=== PATIENT | male | born 1955 | race Caucasian/White ===

== ENCOUNTER 2019-07-07 19:39 | Emergency (ER) | payer MEDICAID, OTHER ==
[~2019-07-07] VITALS: Ht 182.9 cm; Wt 68.0 kg
[~2019-07-07 19:39] MED LIST: ALB0.5UD IH; ATOR10TA PO; FLUT1DIS INH; LISI-604 PO; NO HOME MEDS
--- NOTE | 2019-07-07 19:48 | NUR ---
MD EL AWARE OF PT - VERBAL FOR HEAD AND NECK CT
[2019-07-07] MEDS ORDERED: LIDOcaine 1% W/epiNEPHrine 1:100,000 20ml vial SQ ONE (21:10)
[2019-07-07] MEDS ORDERED: CEPH500C5 PO (21:51)
[2019-07-07] MEDS ORDERED: cephalexin 500mg capsule PO ONE (21:55)
[2019-07-07 22:13] VITALS: BP 159/83
== END 2019-07-07 22:16 | disposition home or self-care (01) ==
LOC: ER 19:39
DX: S02.40DA Maxillary fracture, left side, initial encounter for closed fracture (principal); S02.40FA Zygomatic fracture, left side, initial encounter for closed fracture; S01.81XA Laceration without foreign body of other part of head, initial encounter; Z79.899 Other long term (current) drug therapy; W01.198A Fall on same level from slipping, tripping and stumbling with subsequent striking against other object, initial encounter; Y93.89 Activity, other specified; Y92.89 Other specified places as the place of occurrence of the external cause; Y99.9 Unspecified external cause status
CPT/HCPCS: 12011; 70450; 70486; 72125; 99284